=== PATIENT | female | born 1970 ===

== ENCOUNTER 2018-08-11 09:11 | Outpatient (CLI) | payer OTHER | END 2018-08-11 09:12 | disposition home or self-care (01) | LOC: C.MAMMO 09:12 ==

== ENCOUNTER 2018-08-16 16:13 | Emergency (ER) | payer OTHER ==
[2018-08-16 16:26] VITALS: BP 123/75; PULSE 81; RESP 18; TEMP 98.5; O2SAT 98
[2018-08-16] MEDS ORDERED: Lidocaine 5% Patch TD ONE (17:14)
[2018-08-16] MEDS ORDERED: Lidocaine 5% Patch TD STA (17:16)
--- NOTE | 2018-08-16 17:16 | C.PDOC ---
Time Seen by Provider: 08/16/18 16:44 Chief Complaint (Nursing): Hip Pain Past Medical History Vital Signs: Last Vital Signs Temp 98.5 F 08/16/18 16:22 Pulse 81 08/16/18 16:22 Resp 18 08/16/18 16:22 BP 123/75 08/16/18 16:22 Pulse Ox 98 08/16/18 16:22 - Medical History PMH: Denies: Chronic Kidney Disease - Social History Hx Alcohol Use: No Hx Substance Use: No ED Course And Treatment O2 Sat by Pulse Oximetry: 98 Disposition - Disposition
--- NOTE | 2018-08-16 17:40 | C.PDOC ---
History Of Present Illness 48 year old female presents to the emergency department with complaints of right lower back pain radiating down her leg into her toes. Patient denies trauma or injury in the past. She denies numbness but reports some tingling in the legs. Patient states that she took 800mg of Motrin with no relief. Patient denies bowel/bladder dysfunction, saddle anesthesia. Time Seen by Provider: 08/16/18 16:44 Chief Complaint (Nursing): Hip Pain History Per: Patient History/Exam Limitations: no limitations Onset/Duration Of Symptoms: Days Current Symptoms Are (Timing): Still Present Past Medical History Reviewed: Historical Data, Nursing Documentation, Vital Signs Vital Signs: Last Vital Signs Temp 98.5 F 08/16/18 16:22 Pulse 81 08/16/18 16:22 Resp 18 08/16/18 16:22 BP 123/75 08/16/18 16:22 Pulse Ox 98 08/16/18 16:22 - Medical History PMH: No Chronic Diseases Denies: Chronic Kidney Disease Surgical History: No Surg Hx Family History: States: No Known Family Hx - Social History Hx Alcohol Use: No Hx Substance Use: No Review Of Systems Constitutional: Negative for: Fever, Chills Gastrointestinal: Negative for: Nausea Genitourinary: Negative for: Dysuria, Frequency, Incontinence Musculoskeletal: Positive for: Back Pain, Leg Pain, Foot Pain Physical Exam - Physical Exam Appears: Non-toxic, No Acute Distress Skin: Normal Color, Warm, Dry Head: Atraumatic, Normacephalic Eye(s): bilateral: Normal Inspection, PERRL, EOMI Neck: Normal, Supple Chest: Symmetrical, No Tenderness Back: No Vertebral Tenderness, Paraspinal Tenderness (right sciatic notch tenderness) Pulses: Left Dorsalis Pedis: Normal, Right Dorsalis Pedis: Normal Neurological/Psych: Oriented x3, Normal Speech, Normal Cognition, Normal Motor, Normal Sensation ED Course And Treatment O2 Sat by Pulse Oximetry: 98 (RA) Pulse Ox Interpretation: Normal Medical Decision Making Medical Decision Making: Plan: Lidoderm 5% Patch Toradol 30mg IM Tylenol 650mg PO 1750 pt with right sciatic like symptoms. given meds in ed. pt left ed prior to discharge. discussed with pt that she needs to follow up with pmd and recommend pt. Disposition - Disposition Disposition: HOME/ ROUTINE Disposition Time: 17:45 Condition: GOOD Additional Instructions: Follow up with your doctor, Recommend physical therapy Instructions: Sciatica (DC) Forms: General Discharge Instructions, [facility] ([place]) - Clinical Impression Clinical Impression: Sciatica, right side - PA / [employer] SUPERVISOR / Resident Statement MD/DO has reviewed & agrees with the documentation as recorded. - Scribe Statement The provider has reviewed the documentation as recorded by the Scribe (Finn Candelario) All medical record entries made by the Scribe were at my direction and personally dictated by me. I have reviewed the chart and agree that the record accurately reflects my personal performance of the history, physical exam, medical decision making, and the department course for this patient. I have also personally directed, reviewed, and agree with the discharge instructions and disposition.
--- NOTE | 2018-08-16 17:44 | C.PDOC ---
Time Seen by Provider: 08/16/18 16:44 Chief Complaint (Nursing): Hip Pain Past Medical History Vital Signs: Last Vital Signs Temp 98.5 F 08/16/18 16:22 Pulse 81 08/16/18 16:22 Resp 18 08/16/18 16:22 BP 123/75 08/16/18 16:22 Pulse Ox 98 08/16/18 17:40 - Medical History PMH: Denies: Chronic Kidney Disease - Social History Hx Alcohol Use: No Hx Substance Use: No ED Course And Treatment O2 Sat by Pulse Oximetry: 98 Medical Decision Making Medical Decision Makin pt with right sciatic like symptoms. given meds in ed. pt left ed prior to discharge. discussed with pt that she needs to follow up with pmd and recommend pt. Disposition - Disposition Disposition: HOME/ ROUTINE Disposition Time: 17:42 Condition: GOOD Additional Instructions: Follow up with your doctor, Recommend physical therapy Forms: [facility] ([place]), General Discharge Instructions - Clinical Impression Clinical Impression: Sciatica, right side
== END 2018-08-16 17:49 | disposition home or self-care (01) ==
LOC: C.ER 16:13
DX: M54.31 Sciatica, right side (principal)
CPT/HCPCS: 96372; 99283; J1885